=== PATIENT | male | born 1970 | race Caucasian/White ===

== ENCOUNTER 2024-11-05 19:14 | Emergency (ER) | payer SELFPAY ==
[2024-11-05 19:17] VITALS: BP 129/87; PULSE 106; RESP 16; TEMP 36.8; O2SAT 93
[2024-11-05 19:24] VITALS: BP 129/87; PULSE 106; RESP 16; TEMP 36.8; O2SAT 93
--- NOTE | 2024-11-05 19:35 | ED.GENADUL_ITS ---
Discharge Plan Disposition Patient Disposition: [facility] Condition: Stable Discharge Details Clinical Impression: Alcohol intoxication Primary Care Provider: Ortiz Dos Santos ED Provider: Annette Farley Home Meds and New Rx's Prescriptions: No Action No Known Home Meds Discharge Instructions Instructions: Alcohol Intoxication ED Additional Instructions: Medically cleared for incarceration. Discharge Data Discharge Physician: Annette Farley [facility] General Date/Time Provider Initiated Documentation: 11/05/24 19:17 . HPI Narrative: 54-year-old male with history of COPD and lung cancer presents for evaluation of intoxication. Patient was arrested for DUI. He was brought to the emergency department for medical clearance. He states that he does have some shortness of breath baseline but is not more short of breath than usual. He denies any medical concerns. Denies any suicidal ideation or homicidal ideation. Related Data Home Medications ?Medication ?Instructions ?Recorded ?Confirmed Unknown [No Known Home Meds] 11/05/24 0 11/05/24 Allergies Allergy/AdvReac Type Severity Reaction Status Date / Time No Known Allergies Allergy Verified 11/05/24 19:17 General Stated Complaint: [facility] REBECCA: 4 Review of Systems Narrative: Remainder of review of systems otherwise negative except for as noted in the HPI x 10. Exam Narrative Exam Narrative: General: non-toxic, no respiratory distress, comfortable, odor of alcohol HEENT: normocephalic, atraumatic, lids and lashes normal, PERRL, EOMI, anicteric sclera, no conjunctival injection, moist oral mucosa Card: regular rate and rhythm, S1S2, no murmurs, rubs, or gallops Lungs: good air entry, clear to auscultation bilaterally. no wheezes, rales, rhonchi, or retractions Abd: soft, non-tender, non-distended, normal bowel sounds, no rebound or guarding, no peritoneal signs Musculoskeletal: full range of motion of arms and legs, no tenderness to palpation. no clubbing, cyanosis, or edema Neurologic: appropriate for age, strength normal Psych: alert and oriented, denies suicidal ideation, denies homicidal ideation Skin: no petechiae, no lesions, warm and dry Course Vital Signs Vital signs: Vital Signs Temperature 36.8 C 11/05/24 19:17 Pulse 106 H 11/05/24 19:17 Respiratory Rate 16 11/05/24 19:17 Blood Pressure 129/87 11/05/24 19:17 Pulse Oximetry 93 11/05/24 19:17 Temperature 36.8 C 11/05/24 19:24 Pulse 106 H 11/05/24 19:24 Respiratory Rate 16 11/05/24 19:24 Blood Pressure 129/87 11/05/24 19:24 Pulse Oximetry 93 11/05/24 19:24 Oxygen Delivery Method Room Air 11/05/24 19:24 Oxygen Flow Rate 0 11/05/24 19:24 Pain Level 0 11/05/24 19:24 Medical Decision Making 54-year-old male with history of COPD and lung cancer presents for evaluation after being arrested for DUI. He denies any medical complaints. Physical exam is unremarkable. He is not suicidal or homicidal. He is medically cleared for incarceration. PFSH All Active Problems Alcohol intoxication (Acute) Social History Smoking risk assessment performed?: No Substance use type: does not use Details: Pt denies drug use 11/05/24 PAWSS Have you Been Recently Intoxicated or Drunk Within the Last 30 days?: Yes Have you Ever Experienced Previous Episodes of Alcohol Withdrawal?: Yes Have you ever Experienced Withdrawal Seizures?: Unable to Obtain Have you ever Experienced Delirium Tremens(DT)s?: Unable to Obtain Have you ever undergone Alcohol Rehabilitation Treatment (i.e, inpt ot outpatient treatment programs)?: No Have you ever Experienced Blackouts?: Yes Have you ever Combined Alcohol with other Downers within the last 90 days?: No Have you ever Combined Alcohol with any other Substance of Abuse during the last 90 days?: No Positive Blood Alcohol level on Presentation? [PCS.BAL]: No Evidence of Increased Autonomic Activity (i.e. HR>120, tremor, sweating, agitation, nausea)?: Yes Result: 4
[2024-11-05 19:37] VITALS: RESP 17
== END 2024-11-05 19:37 ==
PROVIDERS: Emergency Provider Emergency Medicine Emergency Medical Services
DX: F10.120 Alcohol abuse with intoxication, uncomplicated (principal); J44.9 Chronic obstructive pulmonary disease, unspecified
CPT/HCPCS: 99283